=== PATIENT | male | born 1975 | race Caucasian/White ===

== ENCOUNTER 2019-09-12 11:21 | Emergency (ER) | payer MEDICAID, OTHER ==
[~2019-09-12] VITALS: Ht 177.8 cm; Wt 78.0 kg
[2019-09-12 12:01] VITALS: BP 138/99
== END 2019-09-12 12:28 ==
LOC: ED 12:22
DX: M25.511 Pain in right shoulder (principal); F17.200 Nicotine dependence, unspecified, uncomplicated
CPT/HCPCS: 99283

== ENCOUNTER 2019-11-27 09:49 | Emergency (ER) | payer MEDICAID, OTHER ==
[~2019-11-27] VITALS: Ht 180.3 cm; Wt 82.0 kg
[2019-11-27 09:53] VITALS: BP 141/90
== END 2019-11-27 10:37 | disposition home or self-care (01) ==
LOC: ED 10:32
DX: Z48.01 Encounter for change or removal of surgical wound dressing (principal)
CPT/HCPCS: 99281